=== PATIENT | male | born 1965 | race Caucasian/White ===

== ENCOUNTER 2021-07-29 07:13 | Emergency (ER) | payer BC, SELFPAY ==
[2021-07-29] VITALS (14 sets, daily range): BP systolic 157–171; BP diastolic 96–106; PULSE 84–94; RESP 13–18; TEMP 36.5–36.9; O2SAT 90–94
--- NOTE | ~2021-07-29 | XR_ITS ---
EXAMINATION: XR chest 2V DATE: 07/29/2021 08:05 INDICATION: Wheezing and cough. TECHNIQUE: Frontal and lateral views of the chest were obtained. COMPARISON: None. FINDINGS: The chest demonstrates clear lungs without pneumonia, pleural effusion, or pneumothorax. Th e heart size is normal. There is mild chronic anterior wedging of multiple lower thoracic vertebral b odies. IMPRESSION: 1. No acute cardiopulmonary disease. Reviewed, dictated and finalized at location A. L GLUE OPERATOR
--- NOTE | 2021-07-29 07:54 | ECG_ITS ---
Measurements Intervals [place] Rate: 89 P: 48 ID: 142 QRS: 5 QRSD: 93 T: 35 QT: 338 QTc: 412 Interpretive Statements SINUS RHYTHM BORDERLINE R WAVE PROGRESSION, ANTERIOR LEADS BASELINE WANDER- I, II, V4-V6 BORDERLINE ECG Electronically Signed On 07-29-2021 9:05:22 CLAIM AUDITOR by Kingsley Correa D.O.
--- NOTE | 2021-07-29 07:55 | ED.URI ---
HPI - URI/Sore Throat General Chief Complaint: Upper Respiratory Infection Stated Complaint: COUGH/COLD S/SX -COVID TEST Time Seen by Provider: 07/29/21 07:32 Source: patient and RN notes reviewed Mode of arrival: ambulatory Limitations: no limitations History of Present Illness HPI Narrative: This is a 56 year old male who presents for evaluation of cough and shortness of breath. He has been having a cough, productive with clear phlegm for 10 days. He was doing well yesterday but this morning he started having a severe coughing spell. He states he lost his breath so he came to ER. He denies associated chest pain, nausea, vomiting, fever or chills but he is wheezing and lightheaded with coughing. He was evaluated at an urgent care 1 week ago, and he was started on azithromycin with Flonase. He has been using an inhaler. He also notes he is currently being evaluated by his PCP for lung disease. 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 Related Data Allergies Allergy/AdvReac Type Severity Reaction Status Date / Time No Known Allergies Allergy Verified 07/29/21 07:31 Review of Systems Review of Systems: All systems reviewed & are unremarkable except as noted in HPI and below Constitutional: Constitutional: Denies chills and Denies fever(s) ENT: Denies sore throat Cardiovascular: Cardiovascular: Denies chest pain Respiratory: Respiratory: Reports cough, Reports dyspnea and Reports wheezing Gastrointestinal: Gastrointestinal: Denies abdominal pain, Denies diarrhea, Denies nausea and Denies vomiting [facility] Past Medical History Medical History (Updated 07/29/21 @ 09:47 by Jayda Santamaria MD) No significant medical problems Social History Social History (Updated 07/29/21 @ 07:55 by Jayda Santamaria MD) Smoking status: Never smoker Alcohol intake: never Exam Const: General: no acute distress and alert Orientation/consciousness: patient oriented x3 HENMT: Head: normocephalic and atraumatic Ears: TM's normal bilaterally Face and sinus: face symmetric Mouth: Yes Normal oral and palatal mucosa present, Yes lip normal, Yes oropharynx normal and Yes moist mucous membranes Eyes: EOM: EOMs intact bilaterally Neck: Neck: normal visual inspection Chest: Chest palpation & inspection: normal inspection of the chest Resp: Effort & Inspection: normal respiratory effort, able to speak in complete sentences, not labored and not tachypneic Auscultation: wheezes expiratory wheezes and throughout Cardio: Rate: regular rate Rhythm: regular rhythm Heart sounds: no murmurs GI: GI Palp: Yes Soft to palpation, No Tenderness to palpation present (GI), No Guarding due to palpation present (GI) and No Rigid due to palpation Auscultation: normal bowel sounds Back/Spine/Pelvis: Back: no CVA tenderness Skin: General skin exam: normal color Neuro: General: patient oriented x3, moves all extremities and CN's II-XI intact bilaterally Psych: Appearance: grossly normal and well kempt Mental Status: mental status grossly normal Affect: normal affect Course Reevaluation(s) Reevaluation #1: I discussed unremarkable lab and xray results with patient. He states he feels better. On reevaluation, his lungs sounds are clearer. He still has mild expiratory wheezing. I ambulated patient down hallway and back to room. He denied shortness of breath or chest pain. Oxygen saturation stayed above 92% Date: 07/29/21 Time: 09:44 Vital Signs Vital signs: Vital Signs Temperature 97.7 F 07/29/21 07:27 Pulse Rate 84 07/29/21 07:27 Respiratory Rate 15 07/29/21 07:27 Blood Pressure 167/106 H 07/29/21 07:27 Pulse Oximetry 94 07/29/21 07:27 Temperature 98.4 F 07/29/21 07:43 Pulse Rate 85 07/29/21 09:51 Respiratory Rate 18 07/29/21 09:51 Blood Pressure 157/96 H 07/29/21 09:51 Pulse Oximetry 94 07/29/21 09:51 MDM - URI/Sore Throat Lab Data Attestatio
[2021-07-29] MEDS: IPRATROPIUM BR 0.02% INH SOLN 0.5 MG/2.5 ML VIAL INHALATION (08:04)
[2021-07-29] MEDS: ALBUTEROL SULFATE NEB 2.5 MG/0.5 ML INH 5 MG INHALATION (08:04)
[2021-07-29 08:18] LABS: Alveolar/Arterial O2 Gradient 38.1 mmHg; Base Excess ABG 1.7 mEq/l (+/-2.0); Carboxyhemoglobin 0.5 % THb (0-2.0); Fractional Inspired Oxygen 21 %; Methemoglobin ABG 0.4 %THb (0-1.5); Oxygen Content ABG 22.7 %vol (16.0-22.0); Oxygen Saturation ABG 92.9 % (95.0-100.0); Oxyhemoglobin 92.1 % THb (90.0-100.0); PCO2 ABG 40.1 mmHg (35.0-45.0); PO2 ABG 63.6 mmHg (80.0-100.0); PO2 FiO2 Ratio Arterial Blood 3.03 %; Total Hemoglobin 17.6 g/dL (12.0-18.0)
[2021-07-29 08:19] LABS: Device ROOM AIR; Site Drawn RIGHT RADIAL
[2021-07-29 08:30] LABS: Basophils Absolute Auto 0.1 K/mm3 (0.0-0.1); Basophils Percent Auto 0.7 % (0.2-1.2); Eosinophils Absolute Auto 0.5 K/mm3 (0-0.3); Eosinophils Percent Auto 4.8 % (0-4.4); Hematocrit 50.5 % (42.0-52.0); Hemoglobin 17.1 g/dL (14.0-18.0); Immature Granulocyte Absolute 0.05 K/mm3 (0.00-0.031); Immature Granulocyte Percent A 0.5 % (0-0.5); Lymphocytes Absolute Auto 1.63 K/mm3 (0.9-3.2); Lymphocytes Percent Auto 17.3 % (18.3-44.2); Mean Corpuscular HGB Conc 33.9 g/dl (32-36); Mean Corpuscular Volume 91.7 fl (80-100); Mean Platelet Volume 9.6 fl (7.4-10.4); Monocytes Absolute Auto 0.9 K/mm3 (0.1-0.6); Monocytes Percent Auto 9.1 % (2.6-8.5); Neutrophils Absolute Auto 6.4 K/mm3 (1.3-6.7); Neutrophils Percent Auto 67.6 % (45.5-73.1); Platelet Count Result 256 k/mm3 (150-375); Red Blood Count 5.51 M/mm3 (4.6-6.20); White Blood Count 9.4 K/mm3 (4.5-10.0)
[2021-07-29] MEDS: predniSONE 20 MG TABLET 60 MG PO (08:30)
[2021-07-29 08:39] LABS: Alanine Aminotransferase 22 U/L (4-50); Albumin Level 4.1 g/dL (3.5-5.1); Alkaline Phosphatase 96 U/L (38-126); Anion Gap 6 mmol/L (8-16); Aspartate Amino Transferase 25 U/L (17-59); Bilirubin,Total 0.7 mg/dL (0.2-1.3); Blood Urea Nitrogen 12 mg/dL (9-20); Carbon Dioxide 32 mmol/L (22-30); Chloride 101 mmol/L (98-107); Estimated CRCL calculation 86 ml/min; Estimated Glomerular Filt Rate > 60; Glucose 125 mg/dL (65-110); Sodium 139 mmol/L (137-145)
[2021-07-29 08:43] LABS: Partial Thromboplastin Time 28.5 SECONDS (22.3-36.8); Prothrombin Time 12.8 Seconds (11.1-14.7)
== END 2021-07-29 10:04 | disposition home or self-care (01) ==
PROVIDERS: Emergency Provider General Practice
DX: J20.9 Acute bronchitis, unspecified (principal)
CPT/HCPCS: 36415; 36600; 71046; 80053; 82375; 82805; 83050; 85025; 85610; 85730; 93005; 94640; 99284; J7512

== ENCOUNTER 2021-09-14 05:31 | Inpatient (IN) | payer BC, SELFPAY ==
[2021-09-14] VITALS (46 sets, daily range): BP systolic 139–194; BP diastolic 84–124; PULSE 90–126; RESP 14–25; TEMP 36.1–36.9; O2SAT 88–100; BMI 29.2; BMI 29.0
--- NOTE | ~2021-09-14 | CT_ITS ---
EXAMINATION:CT diagnostic chest wo con DATE: 09/16/2021 11:36 INDICATION: Abnormal chest radiograph. TECHNIQUE: Computed tomography (CT) of the chest was performed without intravenous contrast. Automate d exposure control and iterative reconstruction technique were employed. The dose-length product (DLP ) was 234.99 mGy-cm. COMPARISON: Chest single view 09/16/2021 FINDINGS: A calcified right lung nodule and calcified right hilar lymph nodes are consistent with old granulomatous disease. There are airspace opacities with volume loss involving the lingula and basil ar left lower lobe. There is mild atelectasis in right lung. No honeycombing. There is mild scarring at the lung apices. No pleural effusion. The heart size is normal. No pericardial effusion. There is bilateral gynecomastia. Calcifications in the spleen are consistent with old granulomatous disease. T here are gallstones in the gallbladder which is decompressed. There are old healed left rib fractures . There is moderate cervical spondylosis and mild thoracic spondylosis. There is mild chronic height loss of multiple vertebral bodies. IMPRESSION: 1. Airspace opacities with volume loss involving the lingula and basilar left lower lobe, consistent with atelectasis/scarring versus pneumonia. Reviewed, dictated and finalized at location A. T ROOM WORKER IMPRESSION: 1. Airspace opacities with volume loss involving the lingula and basilar left l ower lobe, consistent with atelectasis/scarring versus pneumonia.
--- NOTE | ~2021-09-14 | XR_ITS ---
EXAMINATION: XR chest 1V portable EXAM DATE: 09/16/2021 05:53 INDICATION: COVID. TECHNIQUE: Portable AP frontal chest x-ray was obtained. Comparison is made to prior examination from 09/14/2021. FINDINGS: There is left basilar linear predominant airspace disease, pneumonia and/or atelectasis. Ap pears stable or with mild improvement compared to prior study. No pneumothorax or pleural effusion. C ardiomediastinal silhouette is normal. There are no osseous abnormalities identified. IMPRESSION: Multifocal left basilar atelectasis/pneumonia. Reviewed, dictated and finalized at location A. W
--- NOTE | ~2021-09-14 | XR_ITS ---
XR chest 1V portable DATE: 09/14/2021 06:56 INDICATION: Shortness of breath for 2 days. History of asthma. TECHNIQUE: Portable upright AP chest on 09/14/2021 at 0649 hours COMPARISON: 07/29/2021 PA and lateral chest FINDINGS: There are patchy bilateral pulmonary infiltrates involving particularly the mid and lower l elder zones, left greater than right, suggesting bilateral pneumonia, especially Covid. Normal heart size. No pleural effusion or pneumothorax. IMPRESSION: Patchy bilateral pulmonary infiltrates, left greater than right, suggesting Covid pneumon ia Reviewed, dictated and finalized at location A. WIRE FABRIC MACHINE OPERATOR IMPRESSION: Patchy bilateral pulmonary infiltrates, left greater than right, orellana ggesting Covid pneumonia
[2021-09-14] MEDS: ALBUTEROL SULFATE NEB 2.5 MG/0.5 ML INH 15 MG INHALATION (05:57)
[2021-09-14] MEDS: IPRATROPIUM BR 0.02% INH SOLN 0.5 MG/2.5 ML VIAL 1.5 MG INHALATION (05:57)
--- NOTE | 2021-09-14 05:58 | PC.NURSE ---
Respiratory in room with patient.
--- NOTE | 2021-09-14 06:12 | ED.SOB ---
HPI - SOB/Dyspnea General Chief Complaint: Shortness of Breath/Dyspnea <Javier Ku MD - Last Filed: 09/14/21 06:19> Stated Complaint: URI/ Asthma <Javier Ku MD - Last Filed: 09/14/21 06:19> Time Seen by Provider: 09/14/21 05:34 <Javier Ku MD - Last Filed: 09/14/21 06:19> History of Present Illness HPI Narrative: Patient is a 56-year-old male who presents ER with shortness of breath. Worsening over the last couple days. Reports clear phlegm when he coughs. Has exertional dyspnea. Reports he was recently diagnosed with bronchitis and is now being worked up for asthma. Currently he has only using his albuterol because his specialist has scheduled him for pulmonary function tests and does not want him to use any of his antihistamines/steroids. Upon arrival here patients oxygen drops into the upper 80s with ambulation. No chest pain or chest pressure. Denies sick contacts. Denies loss of taste or smell. <Javier Ku MD - Last Filed: 09/14/21 06:19> Related Data Home Medications: Home Medications Medication Instructions Recorded Confirmed fexofenadine mg 09/14/21 montelukast mg 09/14/21 <Javier Ku MD - Last Filed: 09/14/21 06:19> Allergies/Adverse Reactions: Allergies Allergy/AdvReac Type Severity Reaction Status Date / Time No Known Allergies Allergy Verified 09/14/21 05:46 <Javier Ku MD - Last Filed: 09/14/21 06:19> Review of Systems Review of Systems: All systems reviewed & are unremarkable except as noted in HPI and below <Javier Ku MD - Last Filed: 09/14/21 06:19> Constitutional: Constitutional: Denies chills, Denies fever(s) and Denies weakness <Javier Ku MD - Last Filed: 09/14/21 06:19> ENT: Denies nasal congestion and Denies sore throat <Javier Ku MD - Last Filed: 09/14/21 06:19> Cardiovascular: Cardiovascular: Denies chest pain, Denies rapid heart rate and Denies radiating jaw, neck or arm pain <Javier Ku MD - Last Filed: 09/14/21 06:19> Respiratory: Respiratory: Reports cough, Reports dyspnea and Reports wheezing <Javier Ku MD - Last Filed: 09/14/21 06:19> Gastrointestinal: Gastrointestinal: Denies abdominal pain, Denies nausea and Denies vomiting <Javier Ku MD - Last Filed: 09/14/21 06:19> PMFSH Past Medical History Medical History: Medical History (Updated 09/14/21 @ 09:32 by Darrell Roblero MD) No significant medical problems <Javier Ku MD - Last Filed: 09/14/21 06:19> Surgical History Surgical History: Surgical History (Updated 09/14/21 @ 06:18 by Javier Ku MD) No pertinent past surgical history <Javier Ku MD - Last Filed: 09/14/21 06:19> Social History Social History: Social History (Updated 07/29/21 @ 07:55 by Jayda Santamaria MD) Smoking status: Never smoker Alcohol intake: never <Javier Ku MD - Last Filed: 09/14/21 06:19> Exam Narrative: GENERAL: Well-appearing, well-nourished, and in no acute distress. HEAD: Normocephalic, atraumatic. ENT: Mucous membranes moist. CHEST: Diffuse expiratory wheezing. No respiratory distress. HEART: Regular rate and rhythm. Normal peripheral pulses. ABDOMEN: Soft, nontender, nondistended. EXTREMITIES: Normal range of motion. No edema. SKIN: Warm, dry, no rash. NEURO: Alert and oriented x3. PSYCH: Normal mood and affect. <Javier Ku MD - Last Filed: 09/14/21 06:19> Course Reevaluation(s) Reevaluation #1: Physical examination showed generalized wheezing bilaterally, patient does not look in distress or pain. <Darrell Roblero MD - Last Filed: 09/14/21 12:46> Date: 09/14/21 <Darrell Roblero MD - Last Filed: 09/14/21 12:46> Time: 09:22 <Darrell Roblero MD - Last Filed: 09/14/21 12:46> Vital Signs Vital signs: Vital Signs Temperature 36.1 C L 09/14/21 05:41 Pulse Rate 97 09/14/21 05:41 Res
--- NOTE | 2021-09-14 09:29 | ECG_ITS ---
Measurements Intervals [place] Rate: 108 P: 58 MT: 129 QRS: 22 QRSD: 95 T: 35 QT: 330 QTc: 443 Interpretive Statements SINUS TACHYCARDIA BASELINE ARTIFACT- I, II, III, AVR, AVL, AVF, V1, V3-V6 ABNORMAL ECG Electronically Signed On 09-14-2021 14:29:52 FRONT DESK HOST by Kingsley Correa D.O.
[2021-09-14 10:02] LABS: Basophils Absolute Auto 0.1 K/mm3 (0.0-0.1); Basophils Percent Auto 0.7 % (0.2-1.2); Eosinophils Absolute Auto 0.5 K/mm3 (0-0.3); Eosinophils Percent Auto 5.3 % (0-4.4); Hematocrit 52.1 % (42.0-52.0); Hemoglobin 17.7 g/dL (14.0-18.0); Immature Granulocyte Absolute 0.05 K/mm3 (0.00-0.031); Immature Granulocyte Percent A 0.5 % (0-0.5); Lymphocytes Absolute Auto 0.95 K/mm3 (0.9-3.2); Lymphocytes Percent Auto 9.3 % (18.3-44.2); Mean Corpuscular Hemoglobin 30.3 pg (26-34); Mean Corpuscular Volume 89.1 fl (80-100); Mean Platelet Volume 9.2 fl (7.4-10.4); Monocytes Absolute Auto 0.7 K/mm3 (0.1-0.6); Monocytes Percent Auto 7.2 % (2.6-8.5); Neutrophils Absolute Auto 7.9 K/mm3 (1.3-6.7); Platelet Count Result 262 k/mm3 (150-375); Red Blood Count 5.85 M/mm3 (4.6-6.20); Red Cell Distribution Width 12.7 % (11.5-14.5); White Blood Count 10.3 K/mm3 (4.5-10.0)
[2021-09-14 10:11] LABS: Alanine Aminotransferase 22 U/L (4-50); Albumin Level 4.5 g/dL (3.5-5.1); Alkaline Phosphatase 116 U/L (38-126); Anion Gap 7 mmol/L (8-16); Aspartate Amino Transferase 25 U/L (17-59); Bilirubin,Total 0.8 mg/dL (0.2-1.3); Blood Urea Nitrogen 8 mg/dL (9-20); Calcium 9.2 mg/dL (8.4-10.2); Carbon Dioxide 28 mmol/L (22-30); Chloride 99 mmol/L (98-107); Estimated Glomerular Filt Rate > 60; Glucose 128 mg/dL (65-110); Sodium 134 mmol/L (137-145)
[2021-09-14 10:55] LABS: EDCOVIDSCREEN Negative (Negative)
[2021-09-14] MEDS: LABETALOL HCL INJ 100 MG/20 ML VIAL 20 MG IV PUSH ×2 (14:11→16:07)
[2021-09-14] MEDS: ALBUTEROL SULFATE NEB 2.5 MG/0.5 ML INH 5 MG INHALATION (14:36)
[2021-09-14] MEDS: IPRATROPIUM BR 0.02% INH SOLN 0.5 MG/2.5 ML VIAL INHALATION (14:36)
--- NOTE | 2021-09-14 14:55 | PM.IMHP ---
H&P: HPI History of Present Illness Date/Time: 09/14/21 14:55 Chief Complaint: Shortness of breath. Narrative: This is a very pleasant 56-year-old male with history of asthma who presented to the emergency department earlier today via private vehicle from home for evaluation of shortness of breath. He has not felt well for approximately 3 days with a cough productive of clear phlegm, wheezing, progressive dyspnea on exertion, and fatigue as he is not sleeping well due to his symptoms. He is currently seeing a aids social worker for further testing as his doctor suspects he has underlying lung disease and in anticipation of upcoming PFTs he has not been taking his antihistamines and he believes that is making his symptoms worse as well. He was hypoxic on arrival to the emergency department with a pulse ox of 88% on room air and a chest x-ray showed patchy bilateral pulmonary infiltrates, left greater than right. Subsequent rapid COVID test was negative. At the time my evaluation he continues to wheeze and reports perhaps mild benefit with a nebulizer received in the emergency department. He denies sick contacts and reports having completed the COVID vaccination series earlier this year though he has not yet had a booster. He has not had fever, chills, or sweats. He also denies nausea and vomiting but reports occasional loose stools. Review of Systems Review of Systems: Twelve systems were reviewed and are negative except for as per HPI. [facility] Past Medical History Medical History (Updated 09/14/21 @ 22:48 by Anai Wooten PA-C) Asthma Surgical History Surgical History (Updated 09/14/21 @ 22:48 by Anai Wooten PA-C) History of hernia repair Family History Family History Son Diabetes mellitus Other Diabetes 1.5, managed as type 1 Social History Social History (Updated 09/14/21 @ 22:49 by Anai Wooten PA-C) Social History: Surrogate decision maker: Krysten Salcido, spouse. Code status: Full Code. Smoking status: Never smoker Alcohol intake: never Substance use: never Living arrangements: with family Additional occupation/education comments: Works in a [employer]. Meds Home Medications and Allergies Home Medications Medication Instructions Recorded Confirmed Type albuterol sulfate 2 puff INHALATION QID PRN #6.7 g 07/29/21 09/14/21 Rx fexofenadine 180 mg PO DAILY 09/14/21 09/14/21 History montelukast 10 mg HS 09/14/21 09/14/21 History Allergies Allergy/AdvReac Type Severity Reaction Status Date / Time No Known Allergies Allergy Verified 09/14/21 05:46 Vital Signs Vital Signs - 24 hr 09/14/21 05:41 09/14/21 05:42 09/14/21 05:45 Temperature 97.0 F L Pulse Rate 104 H 100 99 Respiratory Rate 22 H 22 H 19 Blood Pressure 177/107 H 177/107 H Pulse Oximetry 92 93 91 09/14/21 05:47 09/14/21 06:00 09/14/21 06:05 Temperature Pulse Rate 96 90 Respiratory Rate 25 H 19 Blood Pressure Pulse Oximetry 91 93 09/14/21 06:15 09/14/21 06:30 09/14/21 06:31 Temperature Pulse Rate 94 94 98 Respiratory Rate 16 15 14 Blood Pressure 153/101 H Pulse Oximetry 100 99 100 09/14/21 06:32 09/14/21 07:11 09/14/21 07:16 Temperature Pulse Rate 105 H 112 H 118 H Respiratory Rate 16 16 21 H Blood Pressure 159/106 H Pulse Oximetry 100 100 95 09/14/21 07:17 09/14/21 07:26 09/14/21 07:30 Temperature Pulse Rate 112 H 109 H Respiratory Rate 18 16 Blood Pressure Pulse Oximetry 96 94 94 09/14/21 08:00 09/14/21 08:02 09/14/21 08:19 Temperature Pulse Rate 113 H 126 H 118 H Respiratory Rate 24 H 20 22 H Blood Pressure 161/96 H Pulse Oximetry 91 91 88 L 09/14/21 08:29 09/14/21 08:45 09/14/21 09:06 Temperature Pulse Rate 101 H 123 H Respiratory Rate 18 22 H Blood Pressure 145/90 H Pulse Oximetry 93 93 93 09/14/21 09:30 09/14/21 09:48 09/14/21 10:00 Temperature
--- NOTE | 2021-09-14 16:18 | PC.NURSE ---
This patient, Jesse Salcido, was admitted to [facility] Surg Room 313-01. Patient/family oriented to hospital policies and general routines including ID bracelet, bed and alarms, visiting hours, pain management, procedures, bathroom and other care routines, personal items, smoking policy, room service/diet, and visiting hours. Information on how to activate the Rapid Response Team has been discussed. Patient/Family are encouraged to report perceived risks to care and to ask questions if they do not understand what they are told or what they should do.
[2021-09-14 16:45] LABS: CRP 3.2 mg/dL (<1.0); Magnesium 1.9 mg/dL (1.6-2.3)
[2021-09-14 17:37] LABS: Lactate Dehydrogenase 425 U/L (313-618)
[2021-09-14] MEDS: methylPREDNISolone SOD SUCC 125 MG VIAL 60 MG IV PUSH ×2 (17:51→23:33)
[2021-09-14] MEDS: ENOXAPARIN 40 MG/0.4 ML SYRINGE SUB-Q (21:29)
--- NOTE | 2021-09-14 23:19 | PCRCNOTE ---
Window of time for administration has passed. See next scheduled administration.
[2021-09-14] MEDS: guaiFENesin 12 HR 600 MG TABCR PO (23:33)
[2021-09-15] VITALS (16 sets, daily range): BP systolic 131–163; BP diastolic 82–94; PULSE 70–118; RESP 18–22; TEMP 36.6–37; O2SAT 93–97
[2021-09-15] MEDS: ALBUTEROL SULFATE NEB 2.5 MG/0.5 ML INH 5 MG INHALATION ×4 (02:38→21:15)
[2021-09-15] MEDS: IPRATROPIUM BR 0.02% INH SOLN 0.5 MG/2.5 ML VIAL INHALATION ×4 (02:38→21:15)
[2021-09-15 06:15] LABS: Hematocrit 50.1 % (42.0-52.0); Mean Corpuscular HGB Conc 33.9 g/dl (32-36); Mean Corpuscular Hemoglobin 30.6 pg (26-34); Mean Corpuscular Volume 90.1 fl (80-100); Mean Platelet Volume 9.5 fl (7.4-10.4); Platelet Count Result 271 k/mm3 (150-375); Red Blood Count 5.56 M/mm3 (4.6-6.20); Red Cell Distribution Width 12.8 % (11.5-14.5); White Blood Count 9.5 K/mm3 (4.5-10.0)
[2021-09-15] MEDS: methylPREDNISolone SOD SUCC 125 MG VIAL 60 MG IV PUSH ×3 (06:28→18:14)
[2021-09-15 06:29] LABS: Alanine Aminotransferase 20 U/L (4-50); Albumin Level 4.1 g/dL (3.5-5.1); Alkaline Phosphatase 97 U/L (38-126); Anion Gap 6 mmol/L (8-16); Aspartate Amino Transferase 22 U/L (17-59); Bilirubin,Total 0.8 mg/dL (0.2-1.3); Blood Urea Nitrogen 11 mg/dL (9-20); Calcium 9.2 mg/dL (8.4-10.2); Carbon Dioxide 26 mmol/L (22-30); Chloride 101 mmol/L (98-107); Estimated CRCL calculation 102 ml/min; Estimated Glomerular Filt Rate > 60; Glucose 156 mg/dL (65-110); Magnesium 1.9 mg/dL (1.6-2.3); Potassium 4.1 mmol/L (3.4-5.0); Sodium 133 mmol/L (137-145)
[2021-09-15] MEDS: guaiFENesin 12 HR 600 MG TABCR PO ×2 (09:26→21:58)
--- NOTE | 2021-09-15 11:44 | PM.IMPN ---
Progress Note: A&P Assessment and Plan (1) Acute respiratory failure with hypoxia: Code(s): J96.01 - Acute respiratory failure with hypoxia Status: Acute Assessment and Plan: Secondary to pneumonia and bronchospasm. Continue scheduled nebulizers and steroids. Wean oxygen as tolerated. (2) Bilateral pneumonia: Code(s): J18.9 - Pneumonia, unspecified organism Status: Acute Assessment and Plan: Continue azithromycin and ceftriaxone pending sputum culture. Will also check for strep pneumonia and Legionella antigens. (3) Person under investigation for COVID-19: Code(s): Z20.822 - Contact with and (suspected) exposure to COVID-19 Status: Acute Assessment and Plan: He will remain in isolation pending SARS-CoV-2 by PCR. (4) Elevated blood pressure reading: Code(s): R03.0 - Elevated blood-pressure reading, without diagnosis of hypertension Status: Acute Assessment and Plan: Blood pressures have been running quite high but have improved with IV labetalol 20 mg IV push x1. Blood pressures continue to improve thus we will monitor closely and initiate antihypertensives if indicated. Additional Plan 09/15/2021 Continue to monitor patient oxygen closely. Continue with antibiotics and stays. Monitor blood pressure closely. Repeat chest x-ray in the morning. Subjective Date/time seen: 09/15/21 11:44 Patient was seen during the morning rounds today. Mild shortness of breath no chest pain. To no abdominal pain, no nausea, no vomiting. Mood stable. Review of Systems Review of Systems: All systems reviewed & are unremarkable except as noted in HPI and below (the history and physical examination.) Exam Narrative: General: Well-developed, mildly ill-appearing male sitting at the side of the bed in no distress. Weight: 92 kg. BMI: 29.1. HEENT: PERRL, EOMI. Sclerae anicteric. Moist mucous membranes. Neck: Supple. No adenopathy or JVD. Respiratory: Mild conversational dyspnea though he is able to speak in full sentences. Diminished breath sounds heard throughout with diffuse expiratory wheezing and scattered bibasilar crackles. Cardiovascular: Regular rate and rhythm with S1-S2. Gastrointestinal: Abdomen is soft, nontender, and nondistended with positive bowel sounds. Skin: Warm and dry. No rash or lesions on limited exam. Extremities: No cyanosis, clubbing, or edema. Radial and pedal pulses intact. Neurological: Alert. Cranial nerves 2-12 are grossly intact. No gross focal deficits to casual conversation. Psychiatric: Pleasant and cooperative with normal mood and affect. Judgment and insight intact. Objective Data Vital Signs Vital Signs: Vital Signs - 24 hr 09/14/21 11:45 09/14/21 12:12 09/14/21 12:24 Temperature Pulse Rate 91 101 H Respiratory Rate 16 17 Blood Pressure 168/100 H Pulse Oximetry 98 96 95 09/14/21 12:43 09/14/21 12:45 09/14/21 13:00 Temperature Pulse Rate 102 H 99 97 Respiratory Rate 16 16 17 Blood Pressure 178/84 H Pulse Oximetry 96 97 94 09/14/21 13:01 09/14/21 13:15 09/14/21 13:30 Temperature Pulse Rate 98 102 H 99 Respiratory Rate 18 16 16 Blood Pressure 194/124 H 188/110 H Pulse Oximetry 96 96 99 09/14/21 14:11 09/14/21 14:16 09/14/21 14:22 Temperature Pulse Rate 110 H 95 93 Respiratory Rate 18 17 Blood Pressure 168/98 H Pulse Oximetry 94 92 09/14/21 14:36 09/14/21 14:45 09/14/21 16:00 Temperature 36.1 C L Pulse Rate 97 101 H 91 Respiratory Rate 19 19 18 Blood Pressure 174/108 H Pulse Oximetry 99 09/14/21 16:07 09/14/21 20:00 09/14/21 20:18 Temperature 36.9 C Pulse Rate 91 95 Respiratory Rate 18 Blood Pressure 139/93 H Pulse Oximetry 94 94 09/15/21 00:00 09/15/21 02:39 09/15/21 02:51 Temperature 36.7 C Pulse Rate 93 99 97 Respiratory Rate 18 20 20 Blood Pressure 144/92 H Pulse Oximetry 95 09/15/21 04:00 09/15/21 08:00 08/22
[2021-09-15 17:04] LABS: SARS-CoV-2 RNA PCR Negative
[2021-09-15] MEDS: MONTELUKAST SODIUM 10 MG TABLET PO (21:58)
[2021-09-15] MEDS: ENOXAPARIN 40 MG/0.4 ML SYRINGE SUB-Q (21:58)
[2021-09-16] VITALS (7 sets, daily range): BP systolic 148–157; BP diastolic 97–99; PULSE 79–103; RESP 20–21; TEMP 36.4–36.7; O2SAT 92–94
[2021-09-16] MEDS: methylPREDNISolone SOD SUCC 125 MG VIAL 60 MG IV PUSH ×3 (00:35→11:00)
[2021-09-16] MEDS: ALBUTEROL SULFATE NEB 2.5 MG/0.5 ML INH 5 MG INHALATION (09:09)
[2021-09-16] MEDS: IPRATROPIUM BR 0.02% INH SOLN 0.5 MG/2.5 ML VIAL INHALATION (09:09)
--- NOTE | 2021-09-16 09:39 | PM.CNPUL ---
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 Patient has responded to treatment with IV steroids, nebulized bronchodilators with significant improvement. In view of exposure to flour dust, we need to exclude flour asthma and/or hypersensitivity pneumonitis related to flour exposure. on chest x-ray there was evidence of infiltrates in the left lung and also some volume loss on left. We will proceed with chest CT without contrast. Continue with current regimen for now. Further recommendations based upon the findings of chest CT. History of Present Illness History of Present Illness Consult date: 09/16/21 Chief complaint: Pneumonia/bronchospasm Narrative: This 56-year-old man was admitted with prolonged history of upper respiratory system symptoms and shortness of breath. The patient was in his usual state of health until approximately several weeks ago when he started having upper respiratory tract symptoms such as runny nose, nasal congestion, cough. He was tested negative for COVID 19 infection.The patient was treated on outpatient basis with antibiotics, and also received steroids presumably for upper respiratory system infection. Over the last week the patient started having cough, wheezing and progressively increasing shortness of breath. When he was evaluated in the emergency room he was found to be hypoxemic. The patient never had history of asthma. Since he was hospitalized, he has received treatment with antibiotics, IV steroids, and nebulized bronchodilators for asthma exacerbation. Currently the patient is doing a lot better. He is on room air complaining of mild cough but no wheezing. As stated the patient never had asthma. 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 Patient told me that he is not wearing a respirator. The patient is a nonsmoker. On admission,chest x-ray showed small infiltrates left lower lobe, and some volume loss on left. The eosinophil count was increased on CBC. Review of Systems Review of Systems: All systems reviewed & are unremarkable except as noted in HPI and below (H and P and below) ON LICENSE OF [facility] Past Medical History Medical History (Updated 09/16/21 @ 09:47 by George Winter MD) Asthma Surgical History Surgical History (Updated 09/14/21 @ 22:48 by Anai Wooten PA-C) History of hernia repair Family History Family History Son Diabetes mellitus Other Diabetes 1.5, managed as type 1 Social History Social History (Updated 09/14/21 @ 22:49 by Anai Wooten PA-C) Social History: Surrogate decision maker: Krysten Salcido, spouse. Code status: Full Code. Smoking status: Never smoker Alcohol intake: never Substance use: never Living arrangements: with family Additional occupation/education comments: Works in a [employer]. Meds Home Medications and Allergies Home Medications Medication Instructions Recorded Confirmed Type albuterol sulfate 2 puff INHALATION QID PRN #6.7 g 07/29/21 09/14/21 Rx fexofenadine 180 mg PO DAILY 09/14/21 09/14/21 History montelukast 10 mg HS 09/14/21 09/14/21 History Allergies Allergy/AdvReac Type Severity Reaction Status Date / Time No Known Allergies Allergy Verified 09/14/21 05:46 Vital Signs Vital Signs - 24 hr 09/15/21 12:00 09/15/21 15:11 09/15/21 15
[2021-09-16] MEDS: LORATADINE 10 MG TABLET PO (09:45)
[2021-09-16] MEDS: guaiFENesin 12 HR 600 MG TABCR PO (09:45)
--- NOTE | 2021-09-16 09:46 | PM.DS ---
DS: Admitting Diagnosis Discharge Date 09/16/2021 Admitting Diagnosis Acute respiratory failure with Hypoxia. Bilateral pneumonia. DS: Discharge Diagnosis Discharge Diagnosis (1) Acute respiratory failure with hypoxia: Code(s): J96.01 - Acute respiratory failure with hypoxia Status: Acute Assessment and Plan: Secondary to pneumonia and bronchospasm. Continue scheduled nebulizers and steroids. Wean oxygen as tolerated. (2) Bilateral pneumonia: Code(s): J18.9 - Pneumonia, unspecified organism Status: Acute Assessment and Plan: Continue azithromycin and ceftriaxone pending sputum culture. Will also check for strep pneumonia and Legionella antigens. (3) Person under investigation for COVID-19: Code(s): Z20.822 - Contact with and (suspected) exposure to COVID-19 Status: Acute Assessment and Plan: He will remain in isolation pending SARS-CoV-2 by PCR. (4) Elevated blood pressure reading: Code(s): R03.0 - Elevated blood-pressure reading, without diagnosis of hypertension Status: Acute Assessment and Plan: Blood pressures have been running quite high but have improved with IV labetalol 20 mg IV push x1. Blood pressures continue to improve thus we will monitor closely and initiate antihypertensives if indicated. DS: Summary Hospital Course Reason for hospitalization: Shortness of breath Hospital Course: Patient is 56 years old male with neck pain shortness of breath,patient x-ray showed that he had pneumonia patient was given IV antibiotics and steroids were given for shortness of breath. COVID is negative. Today patient is feeling better so patient discharged home stable condition patient was to follow-up with primary care physician and Pulmonary outpatient next week patient also advised to repeat chest x-ray outpatient for fixed. Patient was to monitor blood pressure closely at home and not take the readings to his primary care physician for further evaluation treatment. Time spent discussing smoking cessation with patient: 3 to 10 minutes Status at Discharge Cognitive/behavioral status at discharge: Stable Functional status at discharge: independent ambulation Overall status at discharge: patient is back to baseline Time Spent with Patient Time attestation: Total time spent providing and/or coordinating discharge services: Time spent: Less than 30 minutes Exam Narrative: General: Well-developed, mildly ill-appearing male sitting at the side of the bed in no distress. Weight: 92 kg. BMI: 29.1. HEENT: PERRL, EOMI. Sclerae anicteric. Moist mucous membranes. Neck: Supple. No adenopathy or JVD. Respiratory: Mild conversational dyspnea though he is able to speak in full sentences. Diminished breath sounds heard throughout with diffuse expiratory wheezing and scattered bibasilar crackles. Cardiovascular: Regular rate and rhythm with S1-S2. Gastrointestinal: Abdomen is soft, nontender, and nondistended with positive bowel sounds. Skin: Warm and dry. No rash or lesions on limited exam. Extremities: No cyanosis, clubbing, or edema. Radial and pedal pulses intact. Neurological: Alert. Cranial nerves 2-12 are grossly intact. No gross focal deficits to casual conversation. Psychiatric: Pleasant and cooperative with normal mood and affect. Judgment and insight intact. DS: Data Data Completed and Pending Labs on day of discharge: Labs from last 24 hours 09/14/21 14:09 SARS-CoV-2 RNA (RT-PCR) Negative Preliminary micro results at discharge 09/14/21 09:51 Blood Culture - Preliminary Blood 09/14/21 09:53 Blood Culture - Preliminary Blood Discharge Plan Discharge Attending physician on discharge: Dariel Last Consulting providers: ; Salome Carrillo Discharging Clinician: Dariel Last Patient Disposition: Home, Self-Care Activity: as tolerated Diet: as tolerated and regular Patient Instructions: Antibi
--- NOTE | 2021-09-16 09:52 | PM.CNPUL ---
History of Present Illness History of Present Illness Consult date: 09/16/21 Chief complaint: Pneumonia/bronchospasm [facility] Past Medical History Medical History (Updated 09/16/21 @ 09:47 by George Winter MD) Asthma Surgical History Surgical History (Updated 09/14/21 @ 22:48 by Anai Wooten PA-C) History of hernia repair Family History Family History Son Diabetes mellitus Other Diabetes 1.5, managed as type 1 Social History Social History (Updated 09/14/21 @ 22:49 by Anai Wooten PA-C) Social History: Surrogate decision maker: Krysten Salcido, spouse. Code status: Full Code. Smoking status: Never smoker Alcohol intake: never Substance use: never Living arrangements: with family Additional occupation/education comments: Works in a [employer]. Meds Home Medications and Allergies Home Medications Medication Instructions Recorded Confirmed Type albuterol sulfate 2 puff INHALATION QID PRN #6.7 g 07/29/21 09/14/21 Rx fexofenadine 180 mg PO DAILY 09/14/21 09/14/21 History montelukast 10 mg HS 09/14/21 09/14/21 History Allergies Allergy/AdvReac Type Severity Reaction Status Date / Time No Known Allergies Allergy Verified 09/14/21 05:46 Vital Signs Vital Signs - 24 hr 09/15/21 12:00 09/15/21 15:11 09/15/21 15:12 Temperature 36.8 C Pulse Rate 118 H 107 H 100 Respiratory Rate 18 20 20 Blood Pressure 163/85 H Pulse Oximetry 94 09/15/21 16:00 09/15/21 20:00 09/15/21 21:30 Temperature 37.0 C 36.6 C Pulse Rate 117 H 104 H 88 Respiratory Rate 18 18 18 Blood Pressure 163/83 H 163/94 H Pulse Oximetry 93 94 09/15/21 21:45 09/15/21 22:56 09/15/21 23:05 Temperature Pulse Rate 90 Respiratory Rate 22 H Blood Pressure Pulse Oximetry 97 97 09/16/21 00:00 09/16/21 02:42 09/16/21 02:48 Temperature 36.4 C Pulse Rate 103 H 79 80 Respiratory Rate 20 21 H 20 Blood Pressure 157/97 H Pulse Oximetry 93 09/16/21 04:00 09/16/21 09:09 09/16/21 09:12 Temperature 36.7 C Pulse Rate 102 H 99 Respiratory Rate 20 20 Blood Pressure 148/99 H Pulse Oximetry 94 92 09/16/21 09:18 Temperature Pulse Rate 95 Respiratory Rate 20 Blood Pressure Pulse Oximetry Results Laboratory Findings CBC and BMP: 09/15/21 05:47 09/15/21 05:47 Abnormal lab findings: Abnormal Labs 09/14/21 09/14/21 09/14/21 09:52 09:52 16:09 WBC 10.3 H Hct 52.1 H Neut % (Auto) 77.0 H Lymph % (Auto) 9.3 L Eos % (Auto) 5.3 H Jennings # (Auto) 0.7 H Eos # (Auto) 0.5 H Abs Immat Gran (auto) 0.05 H Absolute Neuts (auto) 7.9 H Sodium 134 L Anion Gap 7 L BUN 8 L Glucose 128 H C-Reactive Protein 3.2 H 09/15/21 05:47 WBC Hct Neut % (Auto) Lymph % (Auto) Eos % (Auto) Jennings # (Auto) Eos # (Auto) Abs Immat Gran (auto) Absolute Neuts (auto) Sodium 133 L Anion Gap 6 L BUN Glucose 156 H C-Reactive Protein [facility] Consult Billing Inpatient Consult [id number] Initial Admit High
== END 2021-09-16 12:50 | disposition home or self-care (01) | DRG 189 ==
LOC: ANHED 09:32 → ANH3MEDSUR 13:41
PROVIDERS: Physician Assistant; Admitting Provider Internal Medicine; Emergency Provider Emergency Medicine; Visit Provider Internal Medicine
DX: J96.01 Acute respiratory failure with hypoxia (principal); J18.9 Pneumonia, unspecified organism; Z20.822 Contact with and (suspected) exposure to COVID-19; R03.0 Elevated blood-pressure reading, without diagnosis of hypertension; J45.909 Unspecified asthma, uncomplicated; Z57.2 Occupational exposure to dust; Z79.899 Other long term (current) drug therapy
CPT/HCPCS: 36415; 71045; 71250; 80053; 82728; 83615; 83735; 84145; 85025; 85027; 86140; 87040; 87070; 87205; 87426; 87804; 93005; 94640; 99285; A9270; C9803; J0456; J0696; J1650; J2930; U0003; U0005

== ENCOUNTER 2021-12-19 10:00 | Outpatient (CLI) | payer BC, SELFPAY ==
--- NOTE | 2021-12-19 17:53 | WPDPFTINT ---
PFT Procedure Performed PFT Procedure Performed Spirometry with Pre/Post Bronchodilator Plethysmography (Lung Vol) Diffusing Cap (DLCO) Flow Vol Loop PFT Interpretation This is a pulmonary function test with pre and post-bronchodilator spirometry, plethysmography and diffusing capacity. The test was performed and results interpreted in accordance with the 2019 and 2005 ATS/ERS Task Force guidelines respectively using the Global Lung Function Initiative-2012 reference equations. Patient demonstrated good effort and cooperation. Reproducibility criteria were met. The quality of the pre bronchodilator spirometry maneuver was Grade A and post bronchodilator spirometry maneuver was Grade A. Findings: Spirometry: The contour the inspiratory and expiratory flow tracing are normal. The pre bronchodilator FVC is 3.04 L, 63% predicted. The pre bronchodilator FEV1 is 2.46 L, 65% predicted. The pre bronchodilator FEV1: FVC ratio was 81%. The post bronchodilator FVC is 3.09 L, representing 1% increase. The post bronchodilator FEV1 is 2.49 L, representing 1% increase. The post bronchodilator FEV1: FVC ratio was 81%. Plethysmography: The total lung capacity is 4.75 L, 66% predicted. The functional residual capacity is 2.19 L, 59% predicted. The residual volume is 1.55 L, 69% predicted. Diffusing capacity: The diffusion capacity unadjusted for hemoglobin and carboxyhemoglobin is 24.2, 83% predicted. The diffusing capacity adjusted for alveolar volume is 5.8, 138% predicted. Impression: There is a moderate restrictive ventilatory abnormality. The spirometry is normal without evidence of an obstructive abnormality. There is no significant improvement after inhaling a single dose of albuterol. The diffusing capacity unadjusted for hemoglobin and carboxyhemoglobin is normal and increased when adjusted for alveolar volume. There are no prior studies for comparison
== END 2021-12-19 10:01 | disposition home or self-care (01) ==
PROVIDERS: Visit Provider Internal Medicine Pulmonary Disease
DX: R06.00 Dyspnea, unspecified (principal); R94.2 Abnormal results of pulmonary function studies
CPT/HCPCS: 94060; 94726; 94729

== ENCOUNTER 2021-12-31 16:26 | Outpatient (CLI) | payer BC, SELFPAY ==
[2021-12-31 17:07] LABS: Creatine Kinase 127 U/L (55-170)
[2021-12-31 18:09] LABS: Rheumatoid Factor < 8.6 IU/ML (<12)
[2022-01-04 22:58] LABS: ANCA Screen Negative (Negative)
[2022-01-06 06:56] LABS: ANA Cascade Screen Negative (Negative); Aldolase 6.1 U/L (<=8.1)
[2022-01-06 12:36] LABS: Anti Cyclic Citrullinated Pept <16 Units (<20)
== END 2021-12-31 16:27 | disposition home or self-care (01) ==
LOC: ANHLAB 16:30
PROVIDERS: Visit Provider Internal Medicine Pulmonary Disease
DX: J84.9 Interstitial pulmonary disease, unspecified (principal); J98.4 Other disorders of lung
CPT/HCPCS: 36415; 82085; 82550; 86036; 86038; 86200; 86331; 86430; 86606; 86609

== ENCOUNTER 2022-09-17 09:11 | Outpatient (CLI) | payer BC, SELFPAY ==
--- NOTE | ~2022-09-17 | CT_ITS ---
EXAMINATION: CT diagnostic chest wo con DATE: 09/17/2022 09:34 INDICATION: Occupational reactive airways disease TECHNIQUE: Computed tomography (CT) of the chest was performed without intravenous contrast. The dose -length product (DLP) was 265.19 mGy-cm. Automated exposure control and iterative reconstruction tech [employer] were employed. COMPARISON: 09/16/2021 FINDINGS: The lungs are free of acute opacities. Prior airspace opacities of the lingula have resolve d, consistent with resolving atelectasis or pneumonia. There is a stable 6 mm nodule of the right upp er lobe. There is a stable 4 mm nodule of the left upper lobe. Old healed left-sided rib fractures ar e again noted. No pleural effusion or pneumothorax. No pathologically enlarged thoracic lymph nodes a re identified. The heart size is normal. Bilateral gynecomastia is noted. Calcified right hilar and m ediastinal lymph nodes are consistent with old granulomatous disease. Stones are present in the nondi stended gallbladder. Punctate calcifications in an otherwise normal spleen likely represent healed gr anulomatous disease. There is mild thoracic spondylosis. IMPRESSION: 1. No CT correlate for the patient's symptoms. Reviewed, dictated and finalized at location B. SIT CLERK
== END 2022-09-17 09:12 | disposition home or self-care (01) ==
LOC: ANHIMG 09:15
PROVIDERS: Visit Provider Physician Assistant
DX: J45.909 Unspecified asthma, uncomplicated (principal); J98.4 Other disorders of lung
CPT/HCPCS: 71250

== ENCOUNTER 2022-11-13 10:36 | Outpatient (CLI) | payer BC, SELFPAY ==
--- NOTE | ~2022-11-13 | XR_ITS ---
XR chest 2V 11/13/2022 10:54 Indication: Productive cough and shortness of breath Procedure: PA and lateral views of the chest Comparison: 09/16/2021 and 09/14/2021 Findings: There are chronic left basilar infiltrates unchanged. Heart size normal. Right lung clear. No significant effusion. No pneumothorax. Chronic apical pleural thickening. No acute osseous abnorma lity. Impression: 1: Chronic left basilar infiltrates which may represent atelectasis/scarring or less likely atypical pneumonia. Reviewed, dictated and finalized at location L. E MECHANIC Impression: 1: Chronic left basilar infiltrates which may represent atelectasis/scarring or less likely atypical pneumonia.
== END 2022-11-13 10:37 | disposition home or self-care (01) ==
PROVIDERS: Visit Provider Nurse Practitioner Family
DX: R06.00 Dyspnea, unspecified (principal); R05.9 Cough, unspecified; R91.8 Other nonspecific abnormal finding of lung field
CPT/HCPCS: 71046

== ENCOUNTER 2023-08-21 13:32 | Outpatient (CLI) | payer BC, SELFPAY ==
--- NOTE | ~2023-08-21 | CT_ITS ---
EXAMINATION: CT diagnostic chest wo con DATE: 08/21/2023 13:48 INDICATION: Reactive airway disease. TECHNIQUE: Computed tomography (CT) of the chest was performed without intravenous contrast. The dose -length product was 146.16 mGy-cm. Automated exposure control and iterative reconstruction technique were employed. COMPARISON: CT dated 09/17/[address] dated 09/16/2021 moderate thoracic spondylosis. FINDINGS: There is mediastinal lymphadenopathy. There is bilateral hilar lymphadenopathy. No signific ant pleural or pericardial effusion. There are gallstones. There is a stable 5 mm left upper lobe nod ule, image 41. There is a 7 mm right upper lobe nodule, stable. There are coarse interstitial changes bilaterally with interlobular septal thickening. There is patchy groundglass opacification in the up per lobes. IMPRESSION: 1. Coarse interstitial lung disease predominantly affecting the upper lobes, likely chronic. There is a component of patchy groundglass opacification in the upper lobes. 2: Stable bilateral pulmonary nodules measuring 7 mm or less, likely benign. Consider follow-up low d ose CT in 12 months. 3: Mediastinal and hilar lymphadenopathy, likely reactive. Reviewed, dictated and finalized at location A. UCTION SUPERINTENDENT IMPRESSION: 1. Coarse interstitial lung disease predominantly affecting the upper lobes, li subha chronic. There is a component of patchy groundglass opacification in the u pper lobes. 2: Stable bilateral pulmonary nodules measuring 7 mm or less, likely benign. Co nsider follow-up low dose CT in 12 months. 3: Mediastinal and hilar lymphadenopathy, likely reactive.
== END 2023-08-21 13:33 | disposition home or self-care (01) ==
PROVIDERS: Visit Provider Physician Assistant
DX: R91.8 Other nonspecific abnormal finding of lung field (principal); J84.9 Interstitial pulmonary disease, unspecified; R59.0 Localized enlarged lymph nodes
CPT/HCPCS: 71250

== ENCOUNTER 2023-10-13 14:30 | Outpatient (CLI) | payer BC, SELFPAY ==
[2023-10-13 15:52] LABS: Rheumatoid Factor < 12.0 IU/ML (<12)
[2023-10-15 18:24] LABS: ANA Cascade Screen Negative (Negative)
== END 2023-10-13 14:31 | disposition home or self-care (01) ==
LOC: ANHLAB 14:31
PROVIDERS: Visit Provider Physician Assistant
DX: J84.9 Interstitial pulmonary disease, unspecified (principal)
CPT/HCPCS: 36415; 86038; 86225; 86235; 86331; 86364; 86430; 86606; 86609

== ENCOUNTER 2023-10-21 08:52 | Outpatient (CLI) | payer BC, SELFPAY ==
--- NOTE | 2023-10-21 12:24 | WPDPFTINT ---
PFT Procedure Performed PFT Procedure Performed Spirometry with Pre/Post Bronchodilator Plethysmography (Lung Vol) Diffusing Cap (DLCO) Flow Vol Loop PFT Interpretation This is a pulmonary function test with pre and post-bronchodilator spirometry, plethysmography and diffusing capacity. The test was performed and results interpreted in accordance with the 2019 and 2005 ATS/ERS Task Force guidelines respectively using the Global Lung Function Initiative-2012 reference equations. Patient demonstrated good effort and cooperation. Reproducibility criteria were met. The quality of the pre bronchodilator spirometry maneuver was Grade B and post bronchodilator spirometry maneuver was Grade A. Findings: Spirometry: Contour the inspiratory and expiratory flow tracing are normal. The pre bronchodilator FVC is 2.69 L, 54% predicted. The pre bronchodilator FEV1 is 1.99 L, 52% predicted. The pre bronchodilator FEV1: FVC ratio 74%. The post bronchodilator FVC is 2.85 L, representing a 6% increase. The post bronchodilator FEV1 is 2.04 L, representing a 3% increase. The post bronchodilator FEV1: FVC ratio 72%. Plethysmography: The total lung capacity is 4.43 L, 60% predicted. The functional residual capacity is 2.17 L, 56% predicted. The residual volume is 1.74 L, 74% predicted. Diffusing capacity: The diffusing capacity unadjusted for hemoglobin and carboxyhemoglobin is 20.6, 70% predicted. The diffusing capacity adjusted for alveolar volume is 5.13, 124% predicted. In comparison to previous pulmonary function testing on 12/19/2021 the post bronchodilator FVC is unchanged from 3.09 L to 2.85 L. The post bronchodilator FEV1 is decreased from 2.49 L to 2.04 L. The total lung capacity is unchanged from 4.75 L to 4.43 L. The functional residual capacity is unchanged from 2.19 L to 2.17 L. The residual volume is unchanged from 1.55 L to 1.74 L. The diffusing capacity unadjusted for hemoglobin and carboxyhemoglobin is decreased from 24.2 to 20.6. The diffusing capacity adjusted for alveolar volume is unchanged from 5.88 to 5.13. Impression: There is a moderately severe restrictive ventilatory abnormality. The spirometry is normal without evidence of an obstructive abnormality. There is no significant improvement after inhaling a single dose of albuterol. The diffusing capacity unadjusted for hemoglobin and carboxyhemoglobin is mildly decreased and normalizes when adjusted for alveolar volume. In comparison to previous pulmonary function testing on 12/19/2021 there is a greater than anticipated time dependent decrease in the FEV1 and diffusing capacity unadjusted for hemoglobin and carboxyhemoglobin with no significant change in the FVC, total lung capacity, functional residual capacity, residual volume, and diffusing capacity adjusted for alveolar volume. Clinical correlation is recommended.
== END 2023-10-21 08:53 | disposition home or self-care (01) ==
LOC: ANHPFT 08:52
PROVIDERS: Visit Provider Physician Assistant
DX: J98.4 Other disorders of lung (principal); J84.9 Interstitial pulmonary disease, unspecified
CPT/HCPCS: 94060; 94726; 94729

== ENCOUNTER 2023-12-05 15:28 | Emergency (ER) | payer BC, SELFPAY ==
--- NOTE | ~2023-12-05 | XR_ITS ---
EXAM: XR hand LT min 3V DATE: 12/05/2023 16:18 HISTORY: Fall with Swelling . COMPARISON: None available. FINDINGS: Normal mineralization. Oblique lucency at the radial styloid, without displacement. No lyt ic or blastic lesion. Joint spaces are maintained. No erosion or periosteal change. Soft tissues with in normal limits. IMPRESSION: Possible nondisplaced radial styloid fracture, correlate for pain/point tenderness. Reviewed, dictated and finalized at location K. IMPRESSION: Possible nondisplaced radial styloid fracture, correlate for pain/p oint tenderness.
[2023-12-05 16:03] VITALS: BP 183/104; PULSE 86; RESP 18; TEMP 36.6; O2SAT 96
--- NOTE | 2023-12-05 16:58 | ED.UPPEXIN ---
HPI - Extremity Injury (Upper) General Chief Complaint: Extremity Injury, Upper Stated Complaint: finger injury Time Seen by Provider: 12/05/23 16:20 History of Present Illness HPI narrative: 4-year-old male presents to emergency department for pain to his left hand that started today after mechanical fall. Patient states he was trying to get on a bike when he lost his balance and fell to the ground. States he landed on his left hand outstretched. States his left 5th digit hyperextended he is reporting pain to his 3rd through 5th MTPs. Denies hitting his head or losing consciousness. He is reporting an abrasion to his left knee but denies knee pain. Denies other injuries acquired. Tetanus is up-to-date. Related Data Home Medications Medication Instructions Recorded Confirmed fexofenadine 180 mg tablet 180 mg PO DAILY 09/14/21 10/13/23 montelukast 10 mg tablet 10 mg HS 09/14/21 10/13/23 Allergies Allergy/AdvReac Type Severity Reaction Status Date / Time No Known Allergies Allergy Verified 10/13/23 13:31 Review of Systems Review of Systems: CONSTITUTIONAL: Denies fever, chills, or sweats. EYES: Denies visual changes, redness, or discharge. ENT: Denies rhinorrhea, congestion, sore throat, or otalgia. CARDIOVASCULAR: Denies chest pain, palpitations, or edema. RESPIRATORY: Denies cough or dyspnea. GASTROINTESTINAL: Denies abdominal pain, nausea, vomiting, or diarrhea. GENITOURINARY: Denies dysuria or hematuria. SKIN: See HPI MUSCULOSKELETAL: See HPI. NEUROLOGIC: Denies headache, numbness, or weakness. PSYCHIATRIC: Denies anxiety or depression. [facility] Past Medical History Medical History Asthma Surgical History Surgical History History of hernia repair Family History Family History Son Diabetes mellitus Other Diabetes 1.5, managed as type 1 Social History Social History Social History: Surrogate decision maker: Krysten Salcido, spouse. Code status: Full Code. Caffeine-tea Smoking status: Never smoker Second hand tobacco smoke exposure: Yes Alcohol intake: never Substance use: former Substance use type: does not use Lack of Transportation: No Lack of Food: Never True Current Housing: I Have Housing Concerned About Future Housing: No Difficulty Paying Gas/Electric Bills: No Difficulty Paying for Meds: No Currently Unemployed: No Education: Trade/Vocational Certificate Difficulty w/ Childcare or Family Care: No Living arrangements: with family Additional occupation/education comments: Works in a [employer]. Exam Narrative: GENERAL: Well-appearing, well-nourished, and in no acute distress. HEAD: Normocephalic, atraumatic. EYES: PERRLA and EOMI. ENT: Nares clear, no rhinorrhea or epistaxis. Mucous membranes moist. NECK: Supple. CHEST: Clear to auscultation. No respiratory distress. HEART: Regular rate and rhythm. No murmur heard. Normal peripheral pulses. MSK: LUE: Tenderness to the proximal metacarpals, MTPs and distal phalanx of fingers 3 through 4. Mild edema over the 3rd MTP. No ecchymosis. Full range of motion of all fingers and wrist. No tenderness to wrist, forearm, elbow, shoulder. Cap refill less than 2. Radial pulse 2 +. Left lower extremity with a superficial abrasion to the knee. No bony tenderness. Full range of motion of knee. SKIN: Superficial abrasion to the left knee, bleeding controlled. NEURO: No focal deficits. Alert and oriented x3 Course Vital Signs Vital signs: Vital Signs Temperature 97.9 F 12/05/23 16:03 Pulse Rate 86 12/05/23 16:03 Respiratory Rate 18 12/05/23 16:03 Blood Pressure 183/104 H 12/05/23 16:03 Pulse Oximetry 96 12/05/23 16:03 Oxygen Delivery Room Air
[2023-12-05 17:40] VITALS: BP 162/98; PULSE 78; TEMP 36.9; O2SAT 96
[2023-12-05] MEDS: ACETAMINOPHEN 500 MG TABLET 1000 MG PO (17:43)
== END 2023-12-05 17:48 | disposition home or self-care (01) ==
PROVIDERS: Emergency Provider Physician Assistant
DX: S66.912A Strain of unspecified muscle, fascia and tendon at wrist and hand level, left hand, initial encounter (principal); S80.212A Abrasion, left knee, initial encounter; J45.909 Unspecified asthma, uncomplicated; V18.0XXA Pedal cycle driver injured in noncollision transport accident in nontraffic accident, initial encounter; Y93.55 Activity, bike riding
CPT/HCPCS: 73130; 99283; A9270

== ENCOUNTER 2024-08-22 14:38 | Outpatient (CLI) | payer BC, SELFPAY ==
--- NOTE | ~2024-08-22 | CT_ITS ---
EXAMINATION:CT chest high resolution wo nh DATE: 08/22/2024 14:56 INDICATION: Interstitial pulmonary disease, unspecified. TECHNIQUE: Computed tomography (CT) of the chest was performed without intravenous contrast. Automate d exposure control and iterative reconstruction technique were employed. The dose-length product (DLP ) was 257.68 mGy-cm. COMPARISON: Chest CT 08/21/2023, 09/16/21 FINDINGS: Calcified bilateral lung nodules and calcified right hilar lymph nodes are consistent with old granulomatous disease. The lungs demonstrate multifocal septal thickening and mild groundglass op acities. There is mild atelectasis in left lower lobe. No bronchiectasis or honeycombing. There is a 3 mm nodule in left upper lobe, likely benign. No pleural effusion. The heart size is normal. No garrett cardial effusion. There is bilateral gynecomastia. Calcifications in the spleen are consistent with o ld granulomatous disease. There are gallstones in the gallbladder, which is normal in size. There are old healed left rib fractures. There is thoracic dextroscoliosis and lumbar spondylosis. There is mi ld chronic anterior wedging of multiple vertebral bodies. IMPRESSION: 1. Mild chronic lung disease. Reviewed, dictated and finalized at location A. ITY ASSURANCE CALIBRATOR
== END 2024-08-22 14:39 | disposition home or self-care (01) ==
PROVIDERS: Visit Provider Physician Assistant
DX: J98.4 Other disorders of lung (principal); J84.9 Interstitial pulmonary disease, unspecified
CPT/HCPCS: 71250